=== PATIENT | female | born 1990 | race Caucasian/White ===

== ENCOUNTER 2017-11-16 08:58 | Inpatient (IN) | payer MEDICAID, SELFPAY ==
[2014-07-16 22:03] VITALS: BMI 25.6
[2017-11-16] MEDS: Lactated Ringer's 1,000 ML IV SCH ×2 (11:14→16:51)
[2017-11-16 12:10] LABS: BASO % 0.4 % (0.0-2.0); EOS % 0.3 % (0.0-4.0); HEMOGLOBIN 13.1 g/dL (12.0-16.0); LYMPH # 1.7 K/uL (1.0-4.3); LYMPH % 18.1 % (20.0-40.0); MEAN CELL VOLUME 86.6 fl (81.0-99.0); MEAN CORPUSCULAR HEMOGLOBIN 29.2 pg (27.0-31.0); MEAN CORPUSCULAR HGB CONC 33.7 g/dL (33.0-37.0); MEAN PLATELET VOLUME 9.7 fl (7.2-11.7); MONO # 0.5 K/uL (0.0-0.8); MONO % 5.4 % (0.0-10.0); NEUT # 7.3 K/uL (1.8-7.0); NEUT % 75.8 % (50.0-75.0); RBC 4.47 Mil/uL (3.80-5.20); WHITE BLOOD COUNT 9.7 K/uL (4.8-10.8)
[2017-11-16] MEDS ORDERED: Oxytocin 30 UNIT 30 UNITS/500 ML BAG IV ONE ×3 (12:24→20:00)
[2017-11-16] MEDS ORDERED: Fentanyl/Bupivacaine HCl 250 ML EPI ONE (14:00)
--- NOTE | 2017-11-16 18:09 | OBPN ---
Datetime: 11/16/2017 18:01 FHR - Baseline A Provider: 140 IP Fetus A Comments: mild variables Presentation-Admit: Vertex IP Progress Note Comment: s: pt comfortable w/ epidural. states feels more rested o: 5-6cm/80/-3 srom With light meconium kasie @ 2mu i: 40.4wks augmentation p: reposition pt follw closely NICHD Variability Prov Fetus A: Moderate 6-25bpm NICHD Decel Fetus A IP Provider: Early; Variable Datetime: 11/16/2017 10:00 Membranes, Provider: Intact Gestation - Est Wks by US: 40.4 Vital Signs Provider: Reviewed; Within Normal Limits NICHD Accel Fetus A IP Provider: 15X15 FHR Category Provider Fetus A: Category I Dilatation, Provider: 4cm Effacement, Provider: thick Station, Provider: posterior Datetime: 11/16/2017 09:30 Contraction Comments Provider: irregular
--- NOTE | 2017-11-16 18:14 | OBHP ---
Datetime: 11/16/2017 18:01 Presentation-Admit: Vertex IP Fetus A Comments: mild variables FHR - Baseline A Provider: 140 NICHD Variability Prov Fetus A: Moderate 6-25bpm NICHD Decel Fetus A IP Provider: Early; Variable Datetime: 11/16/2017 10:00 IP Adm Impression: Term, intrauterine IP Admit Plan: Admit to unit; Initiate labor protocol; Initiate labor augmentation protocol Admit Comment, IP Provider: 27 y/o female at 40.4 weeks GA c/o painful uterine contractions. She denies vaginal bleeding, vaginal fluid loss, nausea, vomiting, headache. She endorses good movement. She denies any complications throughout . PNC: [facility] pmhx:none OBGYN hx: none past surgical hx: none social hx: denies etoh, tobacco, recreational drug use Family history: non-contributory home meds: none Allergies: none O: Afebrile, VSS Heart: RRR, S1 S2 Chest: CTA B/L Abd: Soft, NT ,BS- present FHR: 150, moderate variability [place]: irregular contractions SVE: (Chaperoned by Nurse Heide) 4 cm cervical dilation, thick, posterior Assessment: 27 y/o f at 40.4 wk GA intrauterine w/ painful contractions 4 cm dilated upon admission Plan: Admit patient to L_D Monitor FHR Initiate labor protocol CBC, type and screen ordered 1L LR 125mL/hr NPO Can have epidural, anesthesiologist consulted Case discussed w/ attending Dejuan conference interpreter ID [id number] Cathryn Callahan, PGY I Pelvic Type - PN: Adequate Extremities - PN: Normal Abdomen - PN: Normal Back - PN: Normal Breast - PN: Not Done Lungs - PN: Normal Heart - PN: Normal Thyroid - PN: Normal Neurologic - PN: Normal HEENT - PN: Normal General - PN: Normal Membranes, Provider: Intact Comments, ACOG Physical Exam: U/S at bedside showed fetus in vertex presentation GBS negative Gestation - Est Wks by US: 40.4 IP Hx Assessment: The History has been Reviewed and is Current EGA AdmitDate IP: 40.4 Vital Signs Provider: Reviewed; Within Normal Limits IP Chief Complaint: Uterine contractions; Maternal discomfort NICHD Accel Fetus A IP Provider: 15X15 FHR Category Provider Fetus A: Category I Dilatation, Provider: 4cm Effacement, Provider: thick Station, Provider: posterior Genitourinary Exam: Normal DTRs - PN: Not Done Datetime: 11/16/2017 09:30 Contraction Comments Provider: irregular
--- NOTE | 2017-11-16 18:28 | OBADHP ---
Datetime: 11/16/2017 18:01 Presentation-Admit: Vertex IP Fetus A Comments: mild variables FHR - Baseline A Provider: 140 NICHD Variability Prov Fetus A: Moderate 6-25bpm NICHD Decel Fetus A IP Provider: Early; Variable Datetime: 11/16/2017 10:00 Admit Comment, IP Provider: 27 y/o female at 40.4 weeks GA c/o painful uterine contractions. She denies vaginal bleeding, vaginal fluid loss, nausea, vomiting, headache. She endorses good movement. She denies any complications throughout . PNC: [facility] pmhx:none OBGYN hx: none past surgical hx: none social hx: denies etoh, tobacco, recreational drug use Family history: non-contributory home meds: none Allergies: none O: Afebrile, VSS Heart: RRR, S1 S2 Chest: CTA B/L Abd: Soft, NT ,BS- present FHR: 150, moderate variability [place]: irregular contractions SVE: (Chaperoned by Nurse Heide) 4 cm cervical dilation, thick, posterior Assessment: 27 y/o f at 40.4 wk GA intrauterine w/ painful contractions 4 cm dilated upon admission Plan: Admit patient to L_D Monitor FHR Initiate labor protocol CBC, type and screen ordered 1L LR 125mL/hr NPO Can have epidural, anesthesiologist consulted Case discussed w/ attending Dejuan lang interpreter ID [id number] Cathryn Callahan, PGY I Pelvic Type - PN: Adequate Extremities - PN: Normal Abdomen - PN: Normal Back - PN: Normal Breast - PN: Not Done Lungs - PN: Normal Heart - PN: Normal Thyroid - PN: Normal Neurologic - PN: Normal HEENT - PN: Normal General - PN: Normal Membranes, Provider: Intact Comments, ACOG Physical Exam: U/S at bedside showed fetus in vertex presentation GBS negative Gestation - Est Wks by US: 40.4 IP Hx Assessment: The History has been Reviewed and is Current Vital Signs Provider: Reviewed; Within Normal Limits IP Chief Complaint: Uterine contractions; Maternal discomfort NICHD Accel Fetus A IP Provider: 15X15 FHR Category Provider Fetus A: Category I Dilatation, Provider: 4cm Effacement, Provider: thick Station, Provider: posterior Genitourinary Exam: Normal DTRs - PN: Not Done EGA AdmitDate IP: 40.4 IP Adm Impression: Term, intrauterine IP Admit Plan: Admit to unit; Initiate labor protocol; Initiate labor augmentation protocol Datetime: 11/16/2017 09:30 Contraction Comments Provider: irregular
[2017-11-16] MEDS ORDERED: OXYTOCIN/0.9 % NS 20 UNIT/1,000 ML BAG IV SCH (19:15)
[2017-11-16] MEDS ORDERED: Oxycodone/Acetaminophen 5/325 mg Tab PO PRN (20:35)
[2017-11-16] MEDS ORDERED: Benzocaine/Menthol SPRAY TOP PRN (20:35)
[2017-11-16 20:56] VITALS: O2SAT 100
--- NOTE | 2017-11-16 23:42 | OBDS ---
DELIVERY PERSONNEL Delivery Doctor: Tre Solomon MD Glass Loading Equipment Tender: Shea Garner RN Anesthesiologist: Robert Waters MD Resident: Jamison Valdes MD MATERNAL INFORMATION Delivery Anesthesia: Epidural Medications in Delivery: pitocin Estimated Blood Loss (ml): QBL 50 Placenta Cultured: No Maternal Complications: None Provider Comments: 27 y/o , 40.4 wks GA intrauterine w/ painful contractions. There were no complications. Progressed with pitocin augmentation and had a with a f emale infant. was placed on the mother's chest. Placenta delivered and the fundus was found to be firm on palpation. 9 at one minute and 5 minutes. A first degree labial laceration was found and repaired as above. Adequate hemostasis acheived aft er repair. Mother and are both in stable condition and will be transferred to the post unit. Case discussed with attending. Lucio Swift, PGY1 Attending addendum: Diagnosis: 40.4 weeks; labor Procedure: Spontaneous vaginal delivery; placenta delivered spontaneously and intact. Of first-deg ree right labial laceration Resident PGY 1 Dr. Lucio Swift Ob Attending: Dr. Anushka Jeff Findings: Viable female; Apgars 9 and 9; weight 3260 g Pathology: None Destination patient remains in birthing room with . No complications LABOR SUMMARY EDC: 11/12/2017 00:00 No. Babies in Womb: 1 Attempted: No Labor Anesthesia: Epidural LABOR INFORMATION Onset of Labor: 11/16/2017 13:07 Complete Dilatation: 11/16/2017 19:36 Oxytocin: Augmentation Group B Beta Strep: Negative Antibiotics # of Doses: none Antibiotics Time of Last Dose: none Steroids Given: None Reason Steroids Not Administered: Not Applicable MEMBRANES Membranes Rupture Method: Spontaneous Rupture of Membranes: 11/16/2017 16:41 Length of Rupture (hrs): 3.33 Amniotic Fluid Color: Light Meconium Amniotic Fluid Amount: Small Amniotic Fluid Odor: Normal STAGES OF LABOR Stage 1 hrs: 6 Stage 1 min: 29 Stage 2 hrs: 0 Stage 2 min: 25 Stage 3 hrs: 0 Stage 3 min: 7 Total Time in Labor hrs: 7 Total Time in Labor min: 1 VAGINAL DELIVERY Episiotomy: None Laceration Extension: First Degree Other Laceration: Labial Laceration Repair: Yes Laceration Repair Note: 3-0 Vicryl used for repair of first degree labial laceration. Adequate hemos tasis acheived. Initial Vag Sponge Count: 5 Final Vag Sponge Count: 5 Initial Vag Sharps Count: 1 Final Vag Sharps Count: 1 Sponge Count Correct: Yes Sharps Count Correct: Yes CSECTION DELIVERY Primary Indication: N/A Secondary Indication: N/A BABY A INFORMATION Infant Delivery Date/Time: 11/16/2017 20:01 Method of Delivery: Vaginal Born in Route : No : N/A Forceps: N/A Vacuum Extraction: N/A Shoulder Dystocia : No SHOULDER DYSTOCIA BABY A Infant Delivery Date/Time: 11/16/2017 20:01 PRESENTATION/POSITION BABY A Presentation: Cephalic Cephalic Presentation: Vertex Vertex Position: Left Occipital Anterior Breech Presentation: N/A PLACENTA INFORMATION BABY A Placenta Delivery Time : 11/16/2017 20:08 Placenta Method of Delivery: Spontaneous Placenta Status: Delivered SCORES BABY A Heart Rate 1 min: >100 bpm Resp Effort 1 min: Good Cry Reflex Irritability 1 min: Cough or Sneeze or Pulls Away Muscle Tone 1 min: Active Motion Color 1 min: Body [place], Extremities Blue Resuscitation Effort 1 min: N/A SCORE 1 MIN: 9 Heart Rate 5 min: >100 bpm Resp Effort 5 min: Good Cry Reflex Irritability 5 min: Cough or Sneeze or Pulls Away Muscle Tone 5 min: Active Motion Color 5 min: Body [place], Extremities Blue Resuscitation Effort 5 min: N/A SCORE 5 MIN: 9 INFORMATION BABY A Gestational Age at Delivery: 40.4 Gestational Status: Term Infant Outcome : Liveborn Infant Condition : Stable Infant Sex: Female IDENTIFICATION/MEDS BABY A ID Band Number: [id number] ID Band Location: Left Leg; Left Arm WEIGHT/LENGTH BABY A Birthweight (gms): 3260 Infant Weight (lb): 7 Weight (oz): 3 Length Inches: 20.00 Infant Length cms: 50.8 CORD INFORMATION BABY A No. Cord Vessels: 3 Nuchal Cord : N/A Cord Blood Taken: Yes Suction: None ASSESSMENT BABY A Infant Complications: None Physical Findings at Delivery: Within Normal Limits (Annotations: Data stored by N on behalf of er) Infant Respirations: Appears Normal Visual Stylist/ALS Called : No Care By: Dr Mason Transferred To: Remains with Mother
[2017-11-17 07:17] LABS: BASO # 0.1 K/uL (0.0-0.2); BASO % 0.4 % (0.0-2.0); EOS # 0.1 K/uL (0.0-0.7); EOS % 0.8 % (0.0-4.0); HEMOGLOBIN 11.5 g/dL (12.0-16.0); LYMPH % 15.7 % (20.0-40.0); MEAN CELL VOLUME 86.7 fl (81.0-99.0); MEAN CORPUSCULAR HGB CONC 33.4 g/dL (33.0-37.0); MEAN PLATELET VOLUME 8.8 fl (7.2-11.7); MONO # 0.5 K/uL (0.0-0.8); MONO % 4.2 % (0.0-10.0); NEUT # 10.3 K/uL (1.8-7.0); NEUT % 78.9 % (50.0-75.0); RBC 3.98 Mil/uL (3.80-5.20)
--- NOTE | 2017-11-17 11:54 | OBPPN ---
Datetime: 11/17/2017 06:32 PP Pain Prov: Within normal limits PP Nausea Prov: Denies PP Flatus Prov: No PP BM Prov: No PP Breasts Prov: Not Done PP Heart Prov: Normal PP Lungs Prov: Normal PP Abdomen/Uterus Prov: Normal PP Lochia Prov: Normal PP Vulva/Perineum Prov: Not Done PP CVA Tenderness Prov: Normal PP Extremities Prov: Normal PP C/S Incision Prov: Not Applicable PP Progress Prov: Normal PP Impression Prov: Normal progression PP Plan Prov: Continue present management PP Progress Note Prov: S: 27 yo now , 40.4 wks, s/p 11/17/17 being evaluated on PPD1. Pt hav e no acute overnight complains. Abdominal pain appropriately controlled with pain medications. Pt den ies passing flatus or having BM. Lochia is equal to menses. She is and using formula. PT denies fever, chills, diarrhea, nausea/vomiting, chest pain, dyspnea, and dizziness. O: VS: Stable, WNL GEN: NAD Cardio: RRR, S1S2, no murmurs Lungs: CTA B/L, no wheezing Abdomen: BS+, appropriated tendenrness, fundus at umbilicus, firm. Ext: No edema, calves non-tender Neuro/psych: AAOx3, no grossly focal deficits, preserved affect and mood. H/H (post ): Pending A/P: 27 yo now , 40.4 wks, s/p 11/17/17 being evaluated on PPD1 with normal pro gression. Pt remains afebrile, tolerating pain with medication. Tolerating diet. Continue with current management Encourage and ambulating Continue Ibuprofen 600mg q6 for mild-moderate pain. Keep monitoring lochia, fundus and vitals Anticipating discharge tomorrow 11/18/17 Lucio Swift, PGY1 OB Hospitalist on-call. On ronds I saw this patient and agree with note. RENA H/H Vital Signs Provider PP: Reviewed; Within Normal Limits
--- NOTE | 2017-11-18 12:46 | OBPPN ---
Datetime: 11/18/2017 05:46 PP Pain Prov: Abnormal PP Nausea Prov: Denies PP Flatus Prov: Yes PP BM Prov: No PP Breasts Prov: Normal PP Heart Prov: Normal PP Lungs Prov: Normal PP Abdomen/Uterus Prov: Normal PP Lochia Prov: Normal PP Vulva/Perineum Prov: Not Done PP CVA Tenderness Prov: Normal PP Extremities Prov: Normal PP C/S Incision Prov: Not Applicable PP Progress Prov: Normal PP Impression Prov: Normal progression; Pain PP Plan Prov: Continue present management PP Progress Note Prov: 27 yo now , 40.4 wks, s/p 11/17/17 being evaluated on PPD2. Reports h aving neck pain and back pain due to bed positioning. Abdominal pain appropriately controlled with pa in medications. Reports burping but no BM yet. Lochia is less than menses. She is and u sing formula. PT denies fever, chills, diarrhea, nausea/vomiting, chest pain, dyspnea, and dizziness . VSS, WNL GEN: NAD Cardio: RRR, S1S2 Lungs: CTA B/L Back: lumbar paraspinal tenderness Abdomen: BS+, appropriated tendenrness, fundus at umbilicus, firm. Ext: No edema, No calf tendereness Neuro/psych: AAOx3, no grossly focal deficits A/P: 27 yo now , 40.4 wks, s/p 11/17/17 being evaluated on PPD2 with normal pro gression. Continue with current management Encourage Encourage ambulating Continue Ibuprofen 600mg q6 for mild pain Percicet 5/325 Q4hr for moderate pain Anticipating discharge today [place]#[id number] Lucio Swift, PGY1 The patient was seen with the resident I agree with the note Vital Signs Provider PP: Reviewed; Within Normal Limits
--- NOTE | 2017-11-18 12:50 | OBDCSUM ---
Datetime: 11/17/2017 23:18 Discharge Time: 11/18/2017 12:00 Disch Activity Restrictions: No exercising; No lifting; Nothing in vagina - [place], tampons, do lakisha Discharge Comment, Provider: EGA: 40.4 wks Diagnosis: risk factors: None : 11/16/17 @ 20:01, baby girl, Weight: 3260, 11/08. Post- Summary: No complications during post- period. Lochia less than menses. Passing flatus but no BM yet. She is tolerating regular diet, Fundus firm below umbilicus, voiding well, [place] fever, chills, [place]AV[place], SOB, N/V, calf pain. CBC post-: 11.5/34.5 Discharge Instructions: Encourage PNV 1 tab po daily Ibuprofen 600mg 1 tab prn for mild-mod pain ER precautions: If excessive bleeding or fever without relief from medication, go to ED PT was urged if feeling sad, mood swing, depression, neglect of baby, suicidal thoughts, homicidal thought should go to ER or call 911 for help Follow up with [facility] in 4-6 wks for check up Case discussed with attending Lucio Swift, PGY1 The patient was seen with the resident I agree with the note
[2017-11-18 22:24] VITALS: BP 100/67; PULSE 76; RESP 19; TEMP 98.3
== END 2017-11-18 16:40 | disposition home or self-care (01) | DRG 373 ==
LOC: H.EROB2 08:58 → H.L&D 10:13 → H.EROB2 11:02 → H.L&D 11:03 → H.OB/GYN 11-17 00:20
PROVIDERS: ADMIT Obstetrics & Gynecology; ATTEND Obstetrics & Gynecology
PROC: 10E0XZZ Delivery of Products of Conception, External Approach (ICD-10-PCS; principal; 2017-11-16)
PROC: 0HQ9XZZ Repair Perineum Skin, External Approach (ICD-10-PCS; 2017-11-16)
PROC: 4A1HXCZ Monitoring of Products of Conception, Cardiac Rate, External Approach (ICD-10-PCS; 2017-11-16)
DX: O48.0 Post-term pregnancy (principal); O77.0 Labor and delivery complicated by meconium in amniotic fluid; O70.0 First degree perineal laceration during delivery; Z37.0 Single live birth; Z3A.40 40 weeks gestation of pregnancy